=== PATIENT | female | born 1955 | race Caucasian/White ===

== ENCOUNTER → 2018-04-07 | Outpatient (CLI) | payer OTHER ==
[2018-04-07 10:50] LABS: HCT 41.5 % (34.0-46.0); Hypochromasia Slight; MCHC 31.3 g/dL (31.0-37.0); MCV 92.7 fL (80.0-100.0); Mean Platelet Volume 7.5; Platelet Count 306 k/uL (150-450); RBC 4.48 m/uL (3.80-5.40); RDW 13.5 % (11.5-15.5)
[2018-04-07 10:52] LABS: Appearance,Urine Clear (Clear); Bilirubin,Urine Negative (Negative); Blood,Urine Negative (Negative); Color,Urine Light Yellow; Glucose,Urine (UA) Negative (Negative); Ketones,Urine Negative (Negative); Leukocyte Esterase,Urine Negative (Negative); Nitrite,Urine Negative (Negative); PH, Urine 5.5 (5.0-8.0); Protein,Urine Negative (Negative); Specific Gravity,Urine 1.006 (1.001-1.035); Urobilinogen,Urine <2.0 mg/dL (<2.0)
[2018-04-07 10:59] LABS: INR 0.9 (<1.2); Partial Thromboplastin Time 22.5 sec (22.0-30.0)
[2018-04-07 11:04] LABS: ALT 24 U/L (9-52); AST 16 U/L (14-36); Albumin 4.3 g/dL (3.5-5.0); Alkaline Phosphatase 66 U/L (38-126); Anion Gap 8 mmol/L; Blood Urea Nitrogen 15 mg/dL (7-17); Calcium 9.9 mg/dL (8.4-10.2); Carbon Dioxide 34 mmol/L (22-30); Chloride 101 mmol/L (98-107); Glucose 99 mg/dL (74-99); Potassium 4.6 mmol/L (3.5-5.1); Sodium 143 mmol/L (137-145); Total Bilirubin 0.4 mg/dL (0.2-1.3); Total Protein 7.3 g/dL (6.3-8.2)
== END ==
LOC: LABPAT 10:13
PROVIDERS: ATTEND Orthopaedic Surgery
DX: Z01.818 Encounter for other preprocedural examination (principal); Z01.812 Encounter for preprocedural laboratory examination
CPT/HCPCS: 36415; 80053; 81003; 85027; 85610; 85730; 87070; 93005

== ENCOUNTER 2018-04-25 06:10 | Inpatient (IN) | payer OTHER ==
[2018-04-17 10:08] VITALS: BMI 39.4
[~2018-04-25 06:10] MED LIST: MELOXICAM 7.5 MG TAB PO ONE; TRANEXAMIC ACID 1,000 MG in SODIUM CHLORIDE 0.9% 50 ML IVPB ONE
[2018-04-25] MEDS ORDERED: ROPIVACAINE 246.25 MG, EPINEPHrine 0.5 MG, KETOROLAC 30 MG, cloNIDine HCL/PF 80 MCG, WA... MISCELLANE ONE ×5 (07:00)
[2018-04-25] MEDS ORDERED: VANCOMYCIN 1,500 MG in SODIUM CHLORIDE 0.9% 250 ML IVPB ONE ×2 (07:00→19:00)
[2018-04-25] MEDS ORDERED: LACTATED RINGERS 1,000 ML IV ONE ×2 (07:04→10:52)
[2018-04-25] MEDS ORDERED: ONDANSETRON 4 MG/2 ML VIAL IVP ONE (07:35)
[2018-04-25] MEDS ORDERED: DEXAMETHASONE SOD PHOSPHATE 10 MG/ML 1 ML VIAL IV ONE (07:35)
[2018-04-25] MEDS ORDERED: ACETAMINOPHEN TAB 500 MG TAB PO ONE (07:36)
[2018-04-25] MEDS ORDERED: MIDAZOLAM 2 MG/2 ML VIAL IVP ONE (07:55)
[2018-04-25] MEDS ORDERED: hydrOXYzine PAMOATE 25 MG CAP PO PRN (08:59)
[2018-04-25] MEDS ORDERED: BISACODYL 10 MG SUPP RECTAL PRN (08:59)
[2018-04-25] MEDS ORDERED: MAGNESIUM HYDROXIDE 2,400 MG/10 ML CUP PO PRN (08:59)
[2018-04-25] MEDS ORDERED: NALOXONE 0.4 MG/ML 1 ML VIAL IV PRN (08:59)
[2018-04-25] MEDS ORDERED: NA PHOS,M-B/NA PHOS,DI-BA 133 ML ENEMA RECTAL PRN (08:59)
[2018-04-25] MEDS ORDERED: MIDAZOLAM 2 MG/2 ML VIAL ONE (09:08)
[2018-04-25] MEDS ORDERED: diphenhydrAMINE 50 MG/ML 1 ML VIAL ONE (09:08)
[2018-04-25] MEDS ORDERED: TRANEXAMIC ACID 1,000 MG/10 ML VIAL ONE (09:08)
[2018-04-25] MEDS ORDERED: SODIUM CHLORIDE 0.9% 100 ML BAG ONE (09:08)
[2018-04-25] MEDS ORDERED: PROPOFOL 10 MG/ML 20 ML VIAL IV ONE (09:08)
[2018-04-25] MEDS ORDERED: ceFAZolin 3,000 MG in SODIUM CHLORIDE 0.9% IRRIGATIO 3,000 ML IRRIGATION ONE (10:18)
--- NOTE | 2018-04-25 10:43 | P.OP ---
Date of Procedure: 04/25/18 Preoperative Diagnosis: Severe osteoarthritis left knee Postoperative Diagnosis: Severe osteoarthritis left knee Procedure(s) Performed: Left total knee arthroplasty Implants: [employer] Journey II CR Oxinium cruciate retaining femoral component size 4, left [employer] Journey left nonporous tibial baseplate size 2 [employer] Journey II, XLPE CR articular insert, size 9 mm, Size 1-2 left [employer] BCS resurfacing oval patellar component, 29 mm All components were cemented using Palacos R bone cement.. The articulation is Oxinium on polyethylene. Anesthesia: spinal Surgeon: Ramos Kerns Pathology Laboratory Aide #1: Yessenia Lama Estimated Blood Loss (ml): 50 Pathology: other (Bone and cartilage) Condition: stable Disposition: PACU Indications for Procedure: After failure of conservative treatment we discussed the surgical and nonsurgical treatment options at length. Patient wishes to proceed with a total knee arthroplasty. Complications specific to this procedure were discussed at length, including but not limited to infection, bleeding, stiffness , and nerve injury. Patient is aware of all these complications and informed consent was obtained Operative Findings: The operative findings are consistent with severe osteoarthritis of the left knee Description of Procedure: Patient was seen in the preoperative area consent was reviewed and operative site was marked with a skin marker. An adductor canal pain catheter was placed by anesthesia in the preoperative area. Patient was then brought to the operating room and given preoperative antibiotics intravenously. A spinal anesthetic was administered by the anesthesia department. A tourniquet was placed on the upper thigh and the lower extremity was prepped and draped in usual sterile fashion. A gram of transexamic acid was given. A universal timeout was then performed which confirmed the patient's name, surgical site, ALLERGIES, and consent. The lower extremity was then exsanguinated and tourniquet was inflated to 250 mmHg. A standard and anterior midline approach to the knee was performed. The skin and subcutaneous tissue was dissected down to the patellar tendon. A medial parapatellar arthrotomy was then performed. The knee was then extended, the patellar was everted, and the knee was again flexed. Anterior horns of both menisci were excised, and a release was performed to the posterior medial aspect of the knee. On gross visual inspection, there was complete loss of articular cartilage in the medial and patellofemoral joint spaces. There was also significant cartilage damage in the lateral compartment. There were multiple periarticular osteophytes which were then removed with a Ronguer. The femoral canal was then opened with the appropriate drill, and the intramedullary femoral cutting guide was then placed and set for 5 of valgus. The distal femoral cutting block was then pinned in place, and the distal femur was then cut. The cutting block was then removed and the cut was checked for flatness. Next, the sizing guide was then placed and set for 3 external rotation based off of the epicondylar axis and Whitesides line. After the femur was sized, the appropriate 4-in-1 cutting block was then pinned in place. The anterior condyles were cut without notching. The posterior and chamfer cuts were performed while protecting the collateral ligaments. The cutting block was then removed, and the femoral canal was plugged with autologous bone. Attention was then directed to the tibia. The remaining ACL was removed with a Ronguer, and the tibia was then gently subluxed forward with a large bent knee retractor. Any remaining menisci was excised. The posterior lateral corner was cauterized in order to cauterize the lateral geniculate artery. The extra medullary tibial cutting guide was then placed, set for the appropriate rotation , slope, and depth of resection. The proximal tibia cutting guide was then pinned in place. Proximal tibia was then cut and sized. Next trials were then placed with the appropriate-sized insert. The knee was able to fully extend and flex to 130 and was stable throughout all range of motion. The knee was then extended, patella everted. Patella was then measured, and then using an osteotomy guide, the patella was cut at the appropriate level. The patella was then measured and drilled and the patella trial was then placed. The knee was then taken through range of motion with the patella trial and the patella tracked normally. The knee was then extended patella trial was then removed and the patella was everted. Knee was then flexed and lug holes were drilled through the femoral trial and the femoral trial was then removed. The tibial was then exposed, and the tibial broach guide was then pinned in place after it was set for the appropriate rotation to allow for the most coverage without overhang. The tibia was then reamed and broached. The cut surfaces of bone were then irrigated with pulsatile lavage. The posterior structures were injected with the ropivacaine solution. The knee was also irrigated with Irrisept solution. The components were then opened, the cement was mixed, and the components were then cemented in place. The cement was allowed to harden with the knee in full extension. While the cement was hardening, the remaining soft tissues were then injected with a ropivacaine solution, which consisted of 246.25 mg of ropivacaine, 0.5 mg of epinephrine, 30 mg of Toradol, 80 g of clonidine, and 48.45 mL of sterile water, for a total of 100 mL of fluid injected. After the cemented hardened. The tourniquet was released, and hemostasis was obtained. A second gram of transexamic acid was given. The knee was again irrigated. The knee was again taken through range of motion and found to be stable throughout all range of motion of 0-130 , and the patella tracked normally. The fascia was then closed with #2 strata fix suture. The subcutaneous tissue was closed with 3-0 Vicryl and 3-0 strata fix. Dermabond glue was used for the skin and placed with the knee in flexion. The patient was placed in a sterile silver dressing. Patient was then transferred to recovery room in stable condition. The faculty research assistant LES Maldonado was required due the complexity surgery and the need for a skilled regional vice president surgical sales. She assisted in positioning, draping, retraction, and closure of the wound.
--- NOTE | 2018-04-25 11:02 | P.ONQ ---
Anesthesiology Proc Note - PNB - Peripheral Nerve Block Performed Left Adductor Canal Infusion Time Out Performed: Yes Procedure Start Time: 08:00 Procedure Stop Time: 08:10 Indication: Acute Post-Operative Pain, Analgesia, Requested by physician Sedation Type: Sedate with meaningful contact maintained Preparation: Sterile Prep Position: Supine Catheter: Indwelling Needle Types: On-Q Needle Size: 100mm (4") Needle Gauge: 20 Technique: Ultrasound Injectate: 0.5% Ropivacaine (see comment for volume) Blood Aspirated: No Pain Paresthesia on Injection Noted: No Resistance on Injection: Normal Events: Uneventful and Well Tolerated (20ml of total solution)
[2018-04-25] MEDS ORDERED: ROPIVACAINE 1,100 MG, SODIUM CHLORIDE 0.9% 500 ML 330 ML MISCELLANE PRN ×2 (11:07)
[2018-04-25] MEDS ORDERED: KETOROLAC 30 MG/ML 1 ML VIAL IVP ONE (11:20)
--- NOTE | 2018-04-25 11:54 | XR ---
EXAMINATION TYPE: XR knee limited LT DATE OF EXAM: 04/25/2018 CLINICAL HISTORY: Left knee pain and arthritis status post total knee replacement. TECHNIQUE: Portable AP and crosstable lateral views of the left knee are obtained immediately postop eratively. COMPARISON: None FINDINGS: Metallic hardware from total left knee arthroplasty is seen and appears satisfactory in al ignment and position. There is evidence of recent surgery with diffuse subcutaneous gas and soft tis prashanth swelling noted. IMPRESSION: METALLIC HARDWARE FROM TOTAL LEFT KNEE ARTHROPLASTY IS SATISFACTORY IN ALIGNMENT.
[2018-04-25] MEDS ORDERED: ALBUTEROL NEBULIZED 2.5 MG/3 ML INHALATION PRN (14:48)
[2018-04-25] MEDS ORDERED: cloNIDine HCL 0.1 MG TAB PO PRN (14:48)
[2018-04-25] MEDS ORDERED: PANTOPRAZOLE 40 MG TABLET PO PRN (14:48)
[2018-04-25] MEDS: MELOXICAM 7.5 MG TAB PO SCH (16:38)
[2018-04-25] MEDS: SODIUM CHLORIDE 0.9% 1,000 ML IV SCH ×2 (16:38→23:23)
[2018-04-25] MEDS: ASPIRIN 325 MG TAB PO SCH ×2 (16:38→21:00)
[2018-04-25] MEDS: KETOROLAC 30 MG/ML 1 ML VIAL IVP SCH (17:40)
[2018-04-25] MEDS: MODAFINIL 200 MG TAB PO SCH (17:42)
[2018-04-25] MEDS: ONDANSETRON 4 MG/2 ML VIAL IVP PRN (19:46)
[2018-04-25] MEDS: ACETAMINOPHEN TAB 325 MG TAB PO PRN (19:46)
[2018-04-25] MEDS ORDERED: ESCITALOPRAM 20 MG TAB PO SCH (21:00)
[2018-04-25] MEDS ORDERED: ATORVASTATIN 20 MG TAB PO SCH (21:00)
[2018-04-25] MEDS ORDERED: amLODIPine 5 MG TAB PO SCH (21:00)
[2018-04-25] MEDS ORDERED: SENNOSIDES-DOCUSATE SODIUM 1 EACH TAB PO SCH (21:00)
[2018-04-25] MEDS: SYMBICORT 160-4.5 MCG INHALER INHALATION SCH (21:17)
--- NOTE | 2018-04-25 22:37 | CONS ---
CONSULTATION DATE OF SERVICE: 02/22/2019 REASON FOR CONSULTATION: Advice regarding hypertension and hyperlipidemia requested by Orthopedic surgery. HISTORY OF PRESENT ILLNESS: This 62-year-old woman with a past history of asthma, hypertension, hyperlipidemia, hypertension, DJD, history of bariatric surgery being followed by Dr. Tidwell in the outpatient setting underwent left total knee arthroplasty for severe degenerative joint disease. There is no history of fever, rigors or chills. No history of headache. No chest pain, palpitations, shortness of breath, hematochezia or melena at this time. PAST MEDICAL HISTORY: History of asthma, GERD, hypertension, hyperlipidemia, history of DJD, history of pneumonia, sleep apnea, history of bariatric surgery, history of bladder surgery. MEDICATIONS: Prior to admission include home medications are: 1. Clonidine 0.1 mg daily p.r.n. 2. Norvasc 5 mg q.h.s. 3. Modafinil 200 mg p.o. b.i.d. 4. Nexium 20 mg q.h.s. p.r.n. 5. Lexapro 20 mg q.h.s. 6. Vitamin B12 5000 mcg p.o. daily. 7. Vitamin D3 1000 daily. 8. Calcium 1000 mg p.o. daily. 9. Symbicort 160/4.5 two puffs b.i.d. 10.Biotin 5000 mcg p.o. daily. 11.Lipitor 20 mg. 12.Ventolin HFA 2 puffs q.6h p.r.n. ALLERGIES: CODEINE, MORPHINE, AND CONTRAST CODEINE HYDROMORPHONE. FAMILY HISTORY: History of skin cancer. SOCIAL HISTORY: Previous history of smoking. Occasional alcohol intake. REVIEW OF SYSTEMS: ENT: No diminished vision or hearing. Cardiovascular: No angina, palpitations. RESPIRATORY SYSTEM: No cough or hemoptysis. GI no nausea or vomiting. no dysuria. Nervous system: No numbness, weakness. Allergy/Immunology: No asthma or hayfever. Musculoskeletal as mentioned. Hematology: No history of anemia. Endocrine: No history of diabetes or hypothyroidism. CONSTITUTIONAL: As mentioned earlier. DERMATOLOGY: Negative. Rheumatology: Negative. Psychiatry: As mentioned earlier. PHYSICAL EXAM: Patient is alert, oriented x3. The pulse is 75, blood pressure 124/58, respirations 16, temperature 99.1, pulse ox 93% on 2 L. HEENT conjunctivae normal. Neck is no jugular venous distention. Cardiovascular: S1, S2 muffled. Respirations: Breath sounds diminished in the bases. No rhonchi. No crackles. ABDOMEN: Soft, nontender. LEGS: Status post left knee arthroplasty. Nervous system: Higher functions as mentioned earlier. Moves all four extremities. No focal deficits. Lymphatics : No lymph nodes palpable in the neck, axillae or groin. Skin: No ulcer, rash or bleeding. LABS: The preop labs are CBC within normal limits. The preop chemistry is within normal limits. ASSESSMENT: 1. Status post left total knee arthroplasty for severe degenerative joint disease. 2. History of asthma. 3. History of hypertension. 4. Hyperlipidemia. 5. History of degenerative joint disease. 6. History of pneumonia. 7. History of sleep apnea. 8. History of bariatric surgery. 9. Bladder surgery. RECOMMENDATIONS AND DISCUSSION: Recommend to continue current treatment, medications. Continue to monitor. Symptomatic treatment. Otherwise at this time I recommend resume the home medications. DVT prophylaxis. Incentive spirometer. Follow the patient closely with you and patient will be asked to follow with primary physician closely after discharge. Thank you, Dr. Kerns for letting us participate in the care of this patient. MMODL / IJN: [id number] / DOROTHY
[2018-04-26] MEDS: KETOROLAC 30 MG/ML 1 ML VIAL IVP SCH ×4 (00:14→17:49)
--- NOTE | 2018-04-26 06:10 | P.PN ---
Progress Note - Text Progress Note Date: 04/26/18 Patient's postop day 1 from a left total knee arthroplasty. She has an abductor canal catheter running with ropivacaine EN On-Q pump. She reports her pain is well-controlled. She has minimal pain in th posterior aspect of the knee joint. The site is clean and dry. The surgical wound is covered and dressings are changed by the primary team. She denies any lower extremity numbness tingling or weakness. We will continue the current pump for the next 3 days.
[2018-04-26] MEDS: ONDANSETRON 4 MG/2 ML VIAL IVP PRN (06:52)
[2018-04-26 06:54] LABS: Basophils % (A) 0 %; Eosinophils # (A) 0.2 k/uL (0-0.7); Eosinophils % (A) 1 %; HCT 38.6 % (34.0-46.0); HGB 12.2 gm/dL (11.4-16.0); Lymphocytes % (A) 18 %; MCH 29.3 pg (25.0-35.0); MCHC 31.5 g/dL (31.0-37.0); MCV 93.1 fL (80.0-100.0); Mean Platelet Volume 8.3; Monocytes % (A) 9 %; Neutrophils # (A) 7.5 k/uL (1.3-7.7); Neutrophils % (A) 69 %; Platelet Count 227 k/uL (150-450); RBC 4.14 m/uL (3.80-5.40); RDW 13.5 % (11.5-15.5); WBC 10.9 k/uL (3.8-10.6)
--- NOTE | 2018-04-26 08:51 | P.DS ---
Providers Date of admission: 04/25/18 06:10 Expected date of discharge: 04/26/18 Attending physician: Ramos Kerns Consults: 04/25/18 08:59 Consult Physician Routine Consulting Provider: Dillon Tidwell Consult Reason/Comments: medical management Do you want consulting provider notified?: Yes 04/25/18 11:17 Consult Physician Routine Consulting Provider: Sridhar Morris Consult Reason/Comments: medical management Do you want consulting provider notified?: Yes Primary care physician: Dillon Tidwell - Discharge Diagnosis(es) (1) S/P total knee arthroplasty Current Visit: Yes Status: Acute (2) Osteoarthritis of left knee Current Visit: Yes Status: Acute Hospital Course: This is a 62-year-old female with known history of degenerative arthritis of the left knee. The patient presents for evaluation. After discussion and consideration patient elects to proceed with total knee arthroplasty. The patient is seen preoperatively by Dr. Kerns and medically cleared for surgery by their primary care physician. Patient is admitted to [facility] on 04/25/2018 for total knee arthroplasty. The procedures performed without complication or sequelae. The patient is doing well postoperatively. Labs and vital signs are stable on day of discharge. On day of discharge patient's knee incision is healing well. There is minimal erythema. There is no drainage noted at this time. There is minimal soft tissue swelling to the knee. Patient has full foot and ankle motion without difficulty or pain. Calf is soft and nontender to palpation. Neurovascular status to the left lower extremity is intact. Patient is discharged home in good condition. Opioid start talking form is reviewed and signed at patient bedside. Please see med rec for accurate list of home medications. Plan - Discharge Summary Discharge Rx Participant: Yes New Discharge Prescriptions: New Aspirin 325 mg PO BID #60 tab Ketorolac [Toradol] 10 mg PO Q6HR #12 tab No Action amLODIPine BESYLATE [Amlodipine Besylate] 5 mg PO HS Modafinil 200 mg PO BID Esomeprazole Magnesium [NexIUM] 20 mg PO HS PRN PRN Reason: Heartburn Escitalopram [Lexapro] 20 mg PO HS Cholecalciferol [Vitamin D3] 1,000 unit PO DAILY Albuterol Inhaler [Ventolin Hfa Inhaler] 2 puff INHALATION RT-Q6H PRN PRN Reason: Shortness Of Breath cloNIDine HCL [Catapres] 0.1 mg PO DAILY PRN PRN Reason: Blood Pressure - High Budesonide-Formot 160-4.5 Mcg [Symbicort 160-4.5 Mcg Inhaler] 2 puff INHALATION RT-BID Atorvastatin [Lipitor] 20 mg PO HS Cyanocobalamin (Vitamin B-12) [Vitamin B-12] 5,000 mcg PO DAILY Calcium Carbonate [Calcium] 1,000 mg PO DAILY Biotin 5,000 mcg PO DAILY Discharge Medication List Albuterol Inhaler [Ventolin Hfa Inhaler] 2 puff INHALATION RT-Q6H PRN 02/20/15 [ History] Cholecalciferol [Vitamin D3] 1,000 unit PO DAILY 02/20/15 [History] Escitalopram [Lexapro] 20 mg PO HS 02/20/15 [History] Esomeprazole Magnesium [NexIUM] 20 mg PO HS PRN 02/20/15 [History] Modafinil 200 mg PO BID 02/20/15 [History] amLODIPine BESYLATE [Amlodipine Besylate] 5 mg PO HS 02/20/15 [History] cloNIDine HCL [Catapres] 0.1 mg PO DAILY PRN 03/10/15 [History] Atorvastatin [Lipitor] 20 mg PO HS 04/18/18 [History] Biotin 5,000 mcg PO DAILY 04/18/18 [History] Budesonide-Formot 160-4.5 Mcg [Symbicort 160-4.5 Mcg Inhaler] 2 puff INHALATION RT-BID 04/18/18 [History] Calcium Carbonate [Calcium] 1,000 mg PO DAILY 04/18/18 [History] Cyanocobalamin (Vitamin B-12) [Vitamin B-12] 5,000 mcg PO DAILY 04/18/18 [ History] Aspirin 325 mg PO BID #60 tab 04/26/18 [Rx] Ketorolac [Toradol] 10 mg PO Q6HR #12 tab 04/26/18 [Rx] Follow up Appointment(s)/Referral(s): Ramos Kerns DO [Doctor of Osteopathic Medicine] - 2 Weeks Ambulatory/Diagnostic Orders: Continuous Passive Motion (CPM) Machine [DME.AMB1] Time Frame: 3 Weeks, Location : None Selected Activity/Diet/Wound Care/Special Instructions: Weightbearing as tolerated with a walker. CPM 5-6h daily. Leave dressing intact. May be removed by home care nurse or by patient in 10 days. May shower with dressing on. Please follow up with [facility] and call with any questions or concerns, . Discharge Disposition: HOME WITH HOME HEALTH SERVICES
[2018-04-26] MEDS ORDERED: NON-FORMULARY DRUG (Biotin [Biotin] 5,000 MCG) PO SCH (09:00)
[2018-04-26] MEDS: SYMBICORT 160-4.5 MCG INHALER INHALATION SCH (09:15)
[2018-04-26] MEDS: ASPIRIN 325 MG TAB PO SCH (11:26)
[2018-04-26] MEDS: ACETAMINOPHEN TAB 325 MG TAB PO PRN ×2 (11:26→17:57)
[2018-04-26] MEDS: MELOXICAM 7.5 MG TAB PO SCH (11:27)
[2018-04-26] MEDS: MODAFINIL 200 MG TAB PO SCH ×2 (11:28→18:14)
[2018-04-26] MEDS ORDERED: SODIUM CHLORIDE 0.9% 500 ML 500 ML IV ONE (11:46)
[2018-04-26] MEDS ORDERED: CYANOCOBALAMIN 500 MCG TAB PO SCH (12:00)
[2018-04-26] MEDS ORDERED: CHOLECALCIFEROL 1,000 UNIT TAB PO SCH (12:00)
[2018-04-26] MEDS ORDERED: CALCIUM CARBONATE 500 MG CHEWABLE PO SCH (12:30)
[2018-04-26 15:35] VITALS: RESP 17; TEMP 98.3
[2018-04-26 15:48] VITALS: BP 92/63; PULSE 83
[2018-04-26] MEDS: SODIUM CHLORIDE 0.9% 1,000 ML IV SCH (16:41)
--- NOTE | 2018-04-26 18:25 | PN ---
PROGRESS NOTE DATE OF SERVICE: 04/26/2018 This 62-year-old woman who was admitted after left total knee arthroplasty has improved significantly. No chest pain. No palpitations. No fever. On exam, alert and oriented x3. Pulse 76, blood pressure 118/76, respiration 17, temperature 98.3, pulse ox 95%on room air. HEENT: Conjunctivae normal. NECK: No jugular venous distention. CARDIOVASCULAR SYSTEM: S1, S2 muffled. RESPIRATORY SYSTEM: Breath sounds diminished at the bases. No rhonchi. No crackles. ABDOMEN: Soft, non-tender. NERVOUS SYSTEM: No focal deficit. LEGS: Status post surgery. LABS: WBC 10.9. ASSESSMENT: 1. Status post left total knee arthroplasty for severe degenerative joint disease. 2. History of asthma, chronic intermittent type. 3. History of hypertension. 4. Hyperlipidemia. 5. History of degenerative joint disease. 6. History of pneumonia. 7. Sleep apnea. 8. History of bariatric surgery. 9. History of bladder surgery. RECOMMENDATIONS AND DISCUSSION: I recommend to continue current medications, continue with the monitoring, symptomatic treatment. Otherwise at this time I would recommend resuming the home medications. DVT prophylaxis. Closely follow with Orthopedic Surgery. Further recommendations to follow. MMODL / IJN: [id number] /
== END 2018-04-26 18:53 | disposition home health service (06) | DRG 470 ==
LOC: 2ORMAIN 06:10 → 4SSUR 11:06
PROVIDERS: ADMIT Orthopaedic Surgery; ATTEND Orthopaedic Surgery
PROC: 0SRD069 Replacement of Left Knee Joint with Oxidized Zirconium on Polyethylene Synthetic Substitute, Cemented, Open Approach (ICD-10-PCS; principal; 2018-04-25 09:20)
DX: M17.12 Unilateral primary osteoarthritis, left knee (principal); I10 Essential (primary) hypertension; E78.5 Hyperlipidemia, unspecified; Z98.84 Bariatric surgery status; R63.5 Abnormal weight gain; Z68.39 Body mass index [BMI] 39.0-39.9, adult; K21.9 Gastro-esophageal reflux disease without esophagitis; G47.30 Sleep apnea, unspecified; J45.20 Mild intermittent asthma, uncomplicated; Z79.899 Other long term (current) drug therapy; Z90.49 Acquired absence of other specified parts of digestive tract; Z87.01 Personal history of pneumonia (recurrent); Z87.891 Personal history of nicotine dependence; Z91.041 Radiographic dye allergy status; Z88.5 Allergy status to narcotic agent; Z88.7 Allergy status to serum and vaccine
CPT/HCPCS: 84484; 85025; 88300; 94640; 94760

== ENCOUNTER 2020-11-13 08:16 | Day surgery (SDC) | payer OTHER ==
[2020-11-11 15:17] VITALS: BMI 37.8
[~2020-11-13 08:16] MED LIST changes: +LACTATED RINGERS 1,000 ML IV SCH; -MELOXICAM 7.5 MG TAB PO ONE; -TRANEXAMIC ACID 1,000 MG in SODIUM CHLORIDE 0.9% 50 ML IVPB ONE
[2020-11-13 08:54] VITALS: TEMP 97.2
[2020-11-13] MEDS ORDERED: PROPOFOL 10 MG/ML 20 ML VIAL IV ONE (10:08)
--- NOTE | 2020-11-13 10:11 | P.GSHP ---
History of Present Illness H&P Date: 11/13/20 Chief Complaint: History of colon polyps This a 65-year-old female who presents today for colonoscopy. She has a previous history of history of colon polyps. Past Medical History Past Medical History: Asthma, Cancer, GERD/Reflux, Hyperlipidemia, Hypertension, Musculoskeletal Disorder, Osteoarthritis (OA), Pneumonia, Sleep Apnea/CPAP/BIPAP Additional Past Medical History / Comment(s): HX OF SKIN CA. Occ Migraine headache . Diverticulitis. occassional BACK PAIN. USES C-PAP MACHINE. History of Any Multi-Drug Resistant Organisms: None Reported Past Surgical History: Bariatric Surgery, Bladder Surgery, Bowel Resection, Cholecystectomy, Joint Replacement, Orthopedic Surgery, Tubal Ligation Additional Past Surgical History / Comment(s): LAP BAND 2006, removed band on 09/22/15. . RT CAROTID TUMOR REMOVED, TUMOR- VAGUS NERVE REMOVED, LT OVARIAN TUMOR REMOVED. BLADDER SUSPENSION X2.BILATERAL CARPAL TUNNEL . COLON RESECTION 04/2015. total left knee surgery, Past Anesthesia/Blood Transfusion Reactions: Previous Problems w/ Anesthesia, Motion Sickness, Postoperative Nausea & Vomiting (PONV) Additional Past Anesthesia/Blood Transfusion Reaction / Comment(s): "Bad Headache," AND HIGH BLOOD PRESSURE Smoking Status: Former smoker - Past Family History Daughter(s) Family Medical History: Cancer Additional Family Medical History / Comment(s): SKIN CA Mother Family Medical History: Cancer, Deep Vein Thrombosis (DVT), Pulmonary Embolus Additional Family Medical History / Comment(s): SKIN cancer and colon cancer Medications and Allergies Home Medications Medication Instructions Recorded Confirmed Type Albuterol Inhaler (Mhu) [Ventolin 2 puff INHALATION RT-Q6H PRN 02/20/15 11/11/20 History Hfa Inhaler (Mhu)] Escitalopram [Lexapro] 20 mg PO HS 02/20/15 11/11/20 History Esomeprazole Magnesium [NexIUM] 20 mg PO HS PRN 02/20/15 11/11/20 History amLODIPine [Norvasc] 5 mg PO DAILY 11/11/20 11/11/20 History Allergies Allergy/AdvReac Type Severity Reaction Status Date / Time meperidine HCl [From Demerol] Allergy Severe Dyspnea, " Verified 11/13/20 08:50 I STOPPED BREATHING morphine Allergy Severe Dyspnea Verified 11/13/20 08:50 Iodinated Contrast Media Allergy Nausea & Verified 11/13/20 08:50 [Iodinated Contrast Media - Vomiting IV Dye] tetanus and diphtheria Allergy Swelling/RA Verified 11/13/20 08:50 toxoids SH [tetanus & diphtheria toxoids] codeine AdvReac Severe Nausea & Verified 11/13/20 08:50 Vomiting hydromorphone HCl AdvReac Severe "I STOPPED Verified 11/13/20 08:50 [From Dilaudid] BREATHING" Surgical - Exam Vital Signs Temp Pulse Resp BP Pulse Ox 97.2 F L 79 16 153/79 95 11/13/20 08:53 11/13/20 08:53 11/13/20 08:53 11/13/20 08:53 11/13/20 08:53 - General well developed, well nourished, no distress - Eyes PERRL - ENT normal pinna - Neck no masses - Respiratory normal expansion - Cardiovascular Rhythm: regular - Abdomen Abdomen: soft, non tender Assessment and Plan Assessment: History of colon polyps. We'll perform colonoscopy.
--- NOTE | 2020-11-13 10:22 | P.OP ---
Date of Procedure: 11/13/20 Preoperative Diagnosis: History of colon polyps Postoperative Diagnosis: Diverticulosis Procedure(s) Performed: Colonoscopy Anesthesia: MAC Surgeon: Georges Silver Pathology: none sent Condition: stable Disposition: PACU Description of Procedure: Patient's placed on the endoscopy table in the lateral position. She received IV sedation. Digital rectal exam was performed which revealed no abnormalities. The flexible colonoscope was then placed patient anus asked throughout the entire colon. Ileocecal valve was visualized. The cecum, ascending colon appeared normal. In the transverse and descending colon was a few scattered diverticula. The patient a previous low anterior resection. The colorectal anastomosis visualized. The main rectum appeared normal. Scope was withdrawn for patient.
[2020-11-13 10:48] VITALS: BP 122/75; PULSE 54; RESP 15
== END 2020-11-13 11:09 | disposition home or self-care (01) ==
LOC: ORWHC2ENDO 08:16
PROVIDERS: ATTEND Surgery
DX: Z12.11 Encounter for screening for malignant neoplasm of colon (principal); Z86.010 Personal history of colon polyps; K57.90 Diverticulosis of intestine, part unspecified, without perforation or abscess without bleeding; K21.9 Gastro-esophageal reflux disease without esophagitis; E78.5 Hyperlipidemia, unspecified; I10 Essential (primary) hypertension; M19.90 Unspecified osteoarthritis, unspecified site; G43.909 Migraine, unspecified, not intractable, without status migrainosus; Z98.84 Bariatric surgery status; J45.909 Unspecified asthma, uncomplicated; Z87.891 Personal history of nicotine dependence; Z79.899 Other long term (current) drug therapy; Z88.5 Allergy status to narcotic agent; Z88.7 Allergy status to serum and vaccine; Z91.041 Radiographic dye allergy status; G47.33 Obstructive sleep apnea (adult) (pediatric)
CPT/HCPCS: J2704; G0105; 45378